=== PATIENT | male | born 1995 | race African-American/Black ===

== ENCOUNTER 2019-01-01 18:13 | Emergency (ER) | payer OTHER ==
[~2019-01-01] VITALS: Ht 185.4 cm; Wt 88.5 kg
[2019-01-01 19:38] VITALS: BP 126/78
== END 2019-01-01 19:41 | disposition home or self-care (01) ==
LOC: ER 18:13
DX: S61.216A Laceration without foreign body of right little finger without damage to nail, initial encounter (principal); W25.XXXA Contact with sharp glass, initial encounter; Y92.89 Other specified places as the place of occurrence of the external cause; Y93.89 Activity, other specified; Y99.8 Other external cause status

== ENCOUNTER 2019-01-15 20:32 | Emergency (ER) | payer OTHER ==
[~2019-01-15] VITALS: Ht 185.4 cm; Wt 88.5 kg
[2019-01-15 20:59] VITALS: BP 116/64
== END 2019-01-15 20:59 | disposition home or self-care (01) ==
LOC: ER 20:32
DX: S61.216D Laceration without foreign body of right little finger without damage to nail, subsequent encounter (principal); W25.XXXD Contact with sharp glass, subsequent encounter